=== PATIENT | female | born 1940 | race Caucasian/White ===

== ENCOUNTER 2023-06-24 08:02 | Day surgery (SDC) | payer MEDICARE, OTHER ==
[2023-06-24] VITALS (13 sets, daily range): BP systolic 120–154; BP diastolic 69–97
[~2023-06-24] VITALS: Ht 162.6 cm; Wt 87.8 kg
[~2023-06-24 08:02] MED LIST: Acetaminophen 500 MG Tab PO SCH; Alprazolam0.5 MG PO; CeFAZolin Sodium 2,000 MG in NS 100 ML IV SCH; Chlorhexidine Mouth Care 15 ML UDC MT SCH; LISI20 PO; Lactated Ringer's 1,000 ML IV SCH; OxyCODONE HCL 10 MG TABCR PO SCH; Ropivacaine 0.5% HCl/Pf 67.75 MG,EPINEPHrine HCL 0.25 MG,Ketorolac Tromethamine 15 MG,C... INFIL SCH
[2023-06-24] MEDS ORDERED: propofoL 20 ML IV ONE (08:51)
--- NOTE | 2023-06-24 09:13 | NUR ---
PT TO UNIT AMBULATORY WITH WALKER. ABLE TO USE RESTROOM INDEPENDENTLY. History, Chart, Medications and Allergies reviewed before start of procedure. Pre-Op teaching done. Pt verbalizes understanding.
[2023-06-24] MEDS ORDERED: Promethazine HCl 25 MG Tab PO PRN (09:30)
[2023-06-24] MEDS ORDERED: HYDROmorphone HCl/Pf 1MG SYR IV PRN (09:30)
[2023-06-24] MEDS ORDERED: Bisacodyl 10 MG Supp PR PRN (09:30)
[2023-06-24] MEDS ORDERED: DiphenhydrAMINE HCL 25 MG Cap PO PRN (09:30)
[2023-06-24] MEDS ORDERED: Magnesium Hydroxide Conc 10 ML UDC PO PRN (09:35)
[2023-06-24] MEDS ORDERED: OxyCODONE HCL 5 MG TAB PO PRN ×2 (09:35→09:40)
[2023-06-24] MEDS ORDERED: Lactated Ringer's 1,000 ML IV SCH (09:35)
[2023-06-24] MEDS ORDERED: Ondansetron HCl 2 MG / ML 2ML Vial IV PRN (09:35)
[2023-06-24] MEDS ORDERED: Metoclopramide HCl 5MG / ML 2ML Vial IV PRN (09:35)
[2023-06-24] MEDS ORDERED: Prochlorperazine Edisylate 10 mg Vial IV PRN (09:40)
[2023-06-24] MEDS ORDERED: propofoL 50 ML IV ONE (10:24)
[2023-06-24] MEDS ORDERED: Phenylephrine HCl 100 MCG/ML-NS 10MLSYR (1MG/10ML) ONE (10:30)
[2023-06-24] MEDS ORDERED: Ondansetron HCl 2 MG / ML 2ML Vial ONE (10:42)
[2023-06-24] MEDS ORDERED: Dexamethasone Sod Phos 10 MG/ML 1ML VIAL ONE (10:42)
--- NOTE | 2023-06-24 10:49 | NUR ---
06/24/23 1049 Sylvia Wright SPINAL NERVE BLOCK COMPLETED BY JEREMY LOCKE CRNA UPON ENTRY TO OR. PT TOLERATED WELL.
[2023-06-24] MEDS ORDERED: ASPI81CH PO (11:37)
--- NOTE | 2023-06-24 13:04 | NUR ---
PT ARRIVED TO THE UNIT AT 1240. PT ALERT AND ORIENTED UPON ARRIVAL. PT EDUCATED TO USE CALL LIGHT. R HIP DRESSING C/D/I, POLAR PACK IN PLACE. PT ABLE TO MOVE ALL EXTREMITIES. PT DENIES PAIN. PT'S SON LEIDY AT THE BEDSIDE.
[2023-06-24] MEDS ORDERED: Acetaminophen 500 MG Tab PO SCH (16:00)
--- NOTE | 2023-06-24 16:39 | NUR ---
SHIFT SUMMARY PT AND HER SON WERE PROVIDED WITH WRITTEN AND VERBAL DISCHARGE INSTRUCTIONS BY COLE ASHBY RN. PAIN MANAGED WITH TYLENOL AT TIME OF DISCHARGE. PT ABLE TO VOID, TOLERATE PO, VSS, AND CLEARED THERAPY PRIOR TO DISCHARGE. CLEAN DRESSINGS PROVIDED. PT ASSISTED OUT IN W/C AT APPROXIMATELY 1615.
[2023-06-24] MEDS ORDERED: Ketorolac Tromethamine 15mg Vial IV SCH (18:00)
[2023-06-24] MEDS ORDERED: CeFAZolin Sodium 2,000 MG in NS 100 ML IV SCH (18:30)
[2023-06-24] MEDS ORDERED: ALPRAZolam 1 MG Tab PO SCH (21:00)
[2023-06-24] MEDS ORDERED: Docusate Sodium 100 MG Cap PO SCH (21:00)
[2023-06-25] MEDS ORDERED: Aspirin 81 MG Chew PO SCH (09:00)
[2023-06-25] MEDS ORDERED: Lisinopril 20 MG Tab PO SCH (09:00)
== END 2023-06-24 16:20 | disposition home or self-care (01) ==
LOC: ORSCMMR 08:02 → ORD 09:15 → ORSCMMR 09:15 → ORD 11:00 → SURS 12:38 → ORSCMMR 16:20
PROVIDERS: Orthopaedic Surgery
PROC: 0SR90JZ Replacement of Right Hip Joint with Synthetic Substitute, Open Approach (ICD-10-PCS; principal; 2023-06-24 09:15)
DX: M16.11 Unilateral primary osteoarthritis, right hip (principal); I10 Essential (primary) hypertension; F41.9 Anxiety disorder, unspecified; E66.9 Obesity, unspecified; Z68.33 Body mass index [BMI] 33.0-33.9, adult; Z85.3 Personal history of malignant neoplasm of breast; Z79.899 Other long term (current) drug therapy
CPT/HCPCS: 72170; 97116; 97161; 97530; A9270; C1776; J0171; J0690; J0735; J1100; J1885; J2371; J2405; J2704; J2795; J7120